=== PATIENT | male | born 1965 | race Caucasian/White ===

== ENCOUNTER 2017-12-12 19:10 | Emergency (ER) | payer BC ==
[~2017-12-12] VITALS: Ht 185.4 cm; Wt 79.8 kg
--- NOTE | 2017-12-12 19:20 | NUR ---
Dr. Campos at bedside for MSE.
[2017-12-12] MEDS ORDERED: LIDOCAINE HCL 2% 20 ML VIAL TP ONE (19:45)
[2017-12-12] MEDS ORDERED: NEOMY/BACITRA/POLYMYXIN B OINT UD PACKET TP ONE ×2 (19:45→20:08)
[2017-12-12] MEDS ORDERED: LET TOPICAL SOLUTION 8 ML UDC TOP ONE (19:45)
[2017-12-12] MEDS ORDERED: SODIUM BICARBONATE 4.2 % (NEUT) 5 ML VIAL TP ONE (19:45)
[2017-12-12] MEDS ORDERED: LET TOPICAL SOLUTION 8 ML UDC ONE (20:07)
[2017-12-12] MEDS ORDERED: LIDOCAINE HCL 2% 20 ML VIAL ONE (20:08)
[2017-12-12] MEDS ORDERED: SODIUM BICARBONATE 4.2 % (NEUT) 5 ML VIAL ONE (20:08)
[2017-12-12] MEDS ORDERED: CEPHALEXIN MONOHYDRATE 500 MG CAPSULE ONE (22:29)
[2017-12-12] MEDS ORDERED: CEPHALEXIN MONOHYDRATE 500 MG CAPSULE PO ONE (22:30)
[2017-12-12] MEDS ORDERED: HYDROCODONE/APAP 5-325MG TABLET PO ONE (22:30)
[2017-12-12] MEDS ORDERED: HYDROCODONE/APAP 5-325MG TABLET ONE (22:30)
--- NOTE | 2017-12-12 22:46 | NUR ---
Patient discharged to home in stable conditon. Written and verbal after care instructions given. Patient verbalizes understanding of instructions. Patient ambulated out of ER with steady gait, no acute signs of distress, VSS, all belongings taken.
[2017-12-12 22:47] VITALS: BP 140/98
== END 2017-12-12 22:48 | disposition home or self-care (01) ==
LOC: ER 19:23
DX: S61.411A Laceration without foreign body of right hand, initial encounter (principal); S61.011A Laceration without foreign body of right thumb without damage to nail, initial encounter; I10 Essential (primary) hypertension; W26.8XXA Contact with other sharp object(s), not elsewhere classified, initial encounter; Y93.89 Activity, other specified; Y92.89 Other specified places as the place of occurrence of the external cause; Y99.8 Other external cause status
CPT/HCPCS: 12002; 73130; 99284; A4663; J3490 ×2